=== PATIENT | female | born 1965 | race Caucasian/White ===

== ENCOUNTER 2016-12-19 20:04 | Emergency (ER) | payer OTHER, BC ==
[~2016-12-19] VITALS: Ht 157.5 cm; Wt 87.6 kg
[~2016-12-19 20:04] MED LIST: CLINDAMYCIN HC150 MG PO; NORCO 5/3251 TABLET PO
[2016-12-19] MEDS ORDERED: FLEXERIL10 MG PO (23:08)
[2016-12-19] MEDS ORDERED: NAPROSYN500 MG PO (23:08)
[2016-12-19 23:32] VITALS: BP 148/88
== END 2016-12-19 23:34 | disposition home or self-care (01) ==
LOC: EME 20:04
DX: S16.1XXA Strain of muscle, fascia and tendon at neck level, initial encounter (principal); S60.229A Contusion of unspecified hand, initial encounter; M54.9 Dorsalgia, unspecified; V49.40XA Driver injured in collision with unspecified motor vehicles in traffic accident, initial encounter; Y92.410 Unspecified street and highway as the place of occurrence of the external cause
CPT/HCPCS: 99281; 99283

== ENCOUNTER 2016-12-22 20:46 | Emergency (ER) | payer OTHER, BC ==
[~2016-12-22] VITALS: Ht 157.5 cm; Wt 88.5 kg
[~2016-12-22 20:46] MED LIST changes: +FLEXERIL10 MG PO; +NAPROSYN500 MG PO
[2016-12-22] MEDS ORDERED: FIORICET 50-301 EACH PO (23:56)
[2016-12-23 00:26] VITALS: BP 128/76
== END 2016-12-23 00:28 | disposition home or self-care (01) ==
LOC: EME 20:46 → RME 20:46
DX: S13.140A Subluxation of C3/C4 cervical vertebrae, initial encounter (principal); S13.160A Subluxation of C5/C6 cervical vertebrae, initial encounter; R51 Headache; V49.40XA Driver injured in collision with unspecified motor vehicles in traffic accident, initial encounter
CPT/HCPCS: 70450; 72040; 99281; 99284